=== PATIENT | male | born 1945 | race Caucasian/White ===

== ENCOUNTER → 2018-01-02 00:10 | Outpatient (CLI) | payer MEDICARE, SELFPAY ==
[2018-01-02 08:38] LABS: HCT 44.5 % (40.0-50.0); HGB 15.4 g/dL (13.5-17.5); Mean Corp. HGB Concentration 34.6 g/dL (32.0-36.0); Mean Corpuscular Hemoglobin 33.5 pg (27.0-33.0); Mean Corpuscular Volume 96.7 fL (80-95); Mean Platelet Volume 11.1 fL (8.0-11.0); Platelet Count 148 x1000/uL (130-400); RBC Distribution Width 12.2 % (11.8-14.1); White Blood Cell Count 5.88 k/cumm (4.4-10.8)
--- NOTE | 2018-01-02 09:00 | DI.RPTCT_ITS ---
SYMPTOM/DIAGNOSIS: WT LOSS, SMOKER, EARLY SATIETY CT CHEST/ABDOMEN/PELVIS: There is a 4 mm nodule in the posterior left lower lobe on Series 5 image 46. No additional pulmonary nodules are seen. There is no evidence of a suspicious mass, adenopathy, infiltrates or effusions. There are mild to moderate underlying emphysematous changes, both paracephali and central lobular. There is no significant bronchiectasis. Mild peripheral fibrosis is also seen. The heart size is normal. The aorta is normal in diameter. There is calcification and mild mural thrombus seen along the course of the aortic arch and descending thoracic aorta. Coronary artery calcifications are seen. The thyroid is unremarkable. IMPRESSION: Emphysematous and mild fibrotic changes. Single 4 mm nodule in the left lower lobe. An annual follow up with low dose screening chest CT could be considered in one year. CT ABDOMEN AND PELVIS: There is calcification and extensive irregular mural thrombus involving the abdominal aorta. The maximal dimension is 3.3 cm. The iliac arteries also show extensive calcification and thrombus but appear normal in diameter. The liver, spleen, gallbladder, pancreas and adrenals are unremarkable. There is a small stone near the upper pole of the right kidney and a small nonobstructing stone near the lower pole of the left kidney. There is an area of scarring laterally in the mid left kidney and an area of atrophy or scarring near the lower pole of the right kidney. There is no evidence of hydronephrosis. The prostate is normal in size. The bladder has a question of mild wall thickening. The appendix appears normal. There is a moderate quantity of stool. No colonic masses or inflammatory changes are seen. There is no small bowel dilatation. No adenopathy seen in the abdomen or pelvis. The bones appear osteoporotic. No suspicious lytic or blastic bony lesions seen. There are degenerative changes of the lumbar spine greatest at L5-S1. Extensive atherosclerotic changes of the abdominal aorta and iliac arteries without evidence of aneurysm or vascular occlusion. A small amount of obstructing bilateral renal calculi and bilateral areas of renal scarring are noted. No mass or adenopathy is identified.
[2018-01-02] MEDS: Omnipaque 350 MG/ML 100 ML BTL IJ (09:07)
[2018-01-02] MEDS: Breeza Beverage 473 ML BTL PO (09:10)
[2018-01-02] MEDS: Omnipaque 350 MG/ML 50 ML BTL IJ (09:10)
[2018-01-02 09:11] LABS: ALT 23 U/L (12-78); AST 13 U/L (15-37); Albumin 3.6 g/dL (3.4-5.0); Alkaline Phosphatase 87 U/L (46-116); BUN 18 mg/dL (7-18); Bilirubin, Total 1.1 mg/dL (0.2-1.0); CREATININE 1.05 mg/dL (0.70-1.30); Calcium 8.4 mg/dL (8.5-10.1); Chloride 100 mmol/L (98-107); Glucose 206 mg/dL (70-100); Potassium 4.1 mmol/L (3.5-5.1); Sodium 136 mmol/L (136-145); TSH 1.17 uIU/mL (0.358-3.74); Total Protein 6.9 g/dL (6.4-8.2)
[2018-01-03 07:51] LABS: Hemoglobin A1C 9.1 % (4.5-6.2)
== END ==
PROVIDERS: PCP General Practice; Visit Provider General Practice
DX: R63.4 Abnormal weight loss (principal); E11.9 Type 2 diabetes mellitus without complications; F17.200 Nicotine dependence, unspecified, uncomplicated; R91.1 Solitary pulmonary nodule; R68.81 Early satiety; M81.0 Age-related osteoporosis without current pathological fracture; N20.0 Calculus of kidney
CPT/HCPCS: 71260; 74177; Q9967; 36415; 80053; 85027; 83036; 84443; J3490

== ENCOUNTER 2018-08-08 07:02 | Outpatient (CLI) | payer MEDICARE, SELFPAY ==
[2018-08-08 07:50] LABS: Hemoglobin A1C 6.6 % (4.5-6.2)
== END 2018-08-08 07:22 ==
PROVIDERS: PCP General Practice; Visit Provider General Practice
DX: E11.9 Type 2 diabetes mellitus without complications (principal)
CPT/HCPCS: 36415; 83036

== ENCOUNTER 2018-09-19 15:51 | Outpatient (CLI) | payer MEDICARE, SELFPAY ==
--- NOTE | 2018-09-19 15:45 | DI.RAD_ITS ---
SYMPTOMS/DIAGNOSIS: TOE #5 PAIN, PURPLE X 3 MONTHS RIGHT FOOT: Three views were obtained. There are mild degenerative changes at the 1st MTP joint. No other significant bony abnormality seen.
[2018-09-19 16:11] LABS: HCT 41.2 % (40.0-50.0); HGB 13.9 g/dL (13.5-17.5); Mean Corp. HGB Concentration 33.7 g/dL (32.0-36.0); Mean Corpuscular Hemoglobin 32.5 pg (27.0-33.0); Mean Corpuscular Volume 96.3 fL (80-95); Mean Platelet Volume 11.3 fL (8.0-11.0); Platelet Count 152 x1000/uL (130-400); RBC 4.28 m/cumm (4.50-6.00); RBC Distribution Width 11.9 % (11.8-14.1); White Blood Cell Count 7.02 k/cumm (4.4-10.8)
[2018-09-19 17:54] LABS: C-Reactive Protein 0.14 mg/dL (0.0-0.3)
== END 2018-09-19 16:11 ==
PROVIDERS: PCP General Practice; Visit Provider General Practice
DX: M79.674 Pain in right toe(s) (principal); M19.071 Primary osteoarthritis, right ankle and foot
CPT/HCPCS: 36415; 85027; 73630; 86140

== ENCOUNTER 2018-12-29 07:00 | Outpatient (CLI) | payer MEDICARE, SELFPAY ==
[2018-12-29 08:15] LABS: CREATININE 1.03 mg/dL (0.70-1.30); Calculated LDL 112 mg/dL; Cholesterol 184 mg/dL (50-200); HDL Cholesterol 54 mg/dL (40-60); Triglyceride 92 mg/dL (30-150)
[2018-12-29 09:04] LABS: Hemoglobin A1C 6.5 % (4.5-6.2)
== END 2018-12-29 07:20 ==
PROVIDERS: PCP General Practice; Visit Provider General Practice
DX: I10 Essential (primary) hypertension (principal); E11.9 Type 2 diabetes mellitus without complications
CPT/HCPCS: 36415; 80061; 83721; 82565; 83036; 84132

== ENCOUNTER 2019-08-11 01:00 | Outpatient (CLI) | payer MEDICARE, SELFPAY ==
--- NOTE | 2019-08-11 13:15 | DI.CTLCSR_ITS ---
EXAM: CT CHEST LUNG CANCER SCREEN CLINICAL HISTORY: THE PATIENT REPORTEDLY HAS A HISTORY OF SMOKING 30 PACK YEARS AND PRESENTLY SMOKES OR HAS QUIT THE PAST 15 YEARS. TECHNIQUE: Imaging Protocol: Axial computed tomography images with coronal and sagittal reformatted images were created and reviewed COMPARISON: CHEST ABD PELVIS WITH CONTRAST from 01/02/2018 FINDINGS: Tracheobronchial tree: Patent where visualized. Mediastinum and Jennifer: No dominant adenopathy or fluid collection. Pulmonary parenchyma: No focal consolidating infiltrates are present. Mild to moderate emphysematous changes are present in the lungs. There is pulmonary fibrosis. Lung Nodules: There is a stable 4 mm nodule in the posterior aspect of the left lower lobe. No new p ulmonary nodules are present. Pleura: No effusion or pneumothorax. Heart: The heart is not dilated. Moderately severe coronary artery calcification is present. No jairo cardial effusion is present. Aorta: Thoracic aorta non-dilated.Atherosclerosis. Upper abdomen: Nonobstructing 3 mm stone in the upper pole of the right kidney. Bones: Degenerative changes. Soft Tissues: Unremarkable. IMPRESSION: 1. Stable 4 mm left lower lobe pulmonary nodule. 2. Pulmonary emphysema and pulmonary fibrosis. 3. Moderately severe coronary artery calcification. Lung RADS Cat 2 - Benign Appearance / Behavior: Nodules with a very low likelihood of becoming a clin ically active caner due to size or lack of growth Lung-RADS 1.0 CATEGORIES: Category 0 - Prior chest CT exam(s) being located for comparison. Category 1 - Annual screening in 12 months. No nodules or definitely benign nodules. Category 2 - Annual screening in 12 months. Benign appearance. Nodules with low likelihood of becomin g active cancer. Category 3 - 6-month follow-up. Probably benign. Short-term follow-up suggested. Nodules with low lik elihood of becoming active cancer. Category 4A - 3-month follow-up and CT/PET if >8 mm in size. Suspicious finding. Findings which requi re additional testing. Category 4B - Findings which require additional testing and tissue sampling. Suspicious finding. C Added to Any of the Above - History of prior lung cancer screening. S Added to Any of the Above - Significant unexpected other finding. RADIATION DOSE DELIVERED: DATA REPOSITORY: All CT scans at this facility are submitted to the National Radiology Data Registry (NRDR) Dose Index Registry (DIR) with the [employer] ([employer]). RADIATION OPTIMIZATION: All CT scans at this facility use at least one of these dose optimization te chniques: automated exposure control; mA and/or kV adjustment per patient size (includes targeted exa ms where dose is matched to clinical indication); or iterative reconstruction.
== END 2019-08-11 01:20 ==
PROVIDERS: PCP Family Medicine; Visit Provider Family Medicine
DX: Z12.2 Encounter for screening for malignant neoplasm of respiratory organs (principal); F17.210 Nicotine dependence, cigarettes, uncomplicated; R91.1 Solitary pulmonary nodule; J43.8 Other emphysema; I25.10 Atherosclerotic heart disease of native coronary artery without angina pectoris
CPT/HCPCS: G0297

== ENCOUNTER 2020-08-11 03:33 | Outpatient (CLI) | payer MEDICARE, SELFPAY ==
[2020-08-11 14:34] LABS: Anion Gap 9.8 mmol/L (3-11); BUN 40 mg/dL (7-18); CO2 24.2 mmol/L (21.0-32.0); CREATININE 1.7 mg/dL (0.70-1.30); Calcium 8.9 mg/dL (8.5-10.1); Chloride 103 mmol/L (98-107); Glucose 109 mg/dL (74-106); Potassium 5.2 mmol/L (3.5-5.1); Sodium 137 mmol/L (136-145)
== END 2020-08-11 03:34 | disposition home or self-care (01) ==
LOC: LBO 03:33
PROVIDERS: PCP Family Medicine; Visit Provider Family Medicine
DX: I10 Essential (primary) hypertension (principal)
CPT/HCPCS: 36415; 80048

== ENCOUNTER 2020-09-13 03:03 | Outpatient (CLI) | payer MEDICARE, SELFPAY ==
[2020-09-14 12:23] LABS: COVID-19 RT-PCR UVMMC Result Negative (Negative)
== END 2020-09-13 03:04 | disposition home or self-care (01) ==
LOC: LBO 03:03
PROVIDERS: PCP Family Medicine; Visit Provider Family Medicine
DX: Z20.822 Contact with and (suspected) exposure to COVID-19 (principal)
CPT/HCPCS: U0003; U0005

== ENCOUNTER 2020-09-20 02:45 | Outpatient (CLI) | payer MEDICARE, SELFPAY ==
[2020-09-20 13:05] LABS: Anion Gap 7.2 mmol/L (3-11); BUN 40 mg/dL (7-18); CO2 27.8 mmol/L (21.0-32.0); CREATININE 1.6 mg/dL (0.70-1.30); Calcium 8.9 mg/dL (8.5-10.1); Chloride 105 mmol/L (98-107); Estimated GFR 42.46 (mL/min/1.73m2); Glucose 86 mg/dL (74-106); Potassium 4.7 mmol/L (3.5-5.1); Sodium 140 mmol/L (136-145)
== END 2020-09-20 02:46 | disposition home or self-care (01) ==
LOC: LBO 02:45
PROVIDERS: PCP Family Medicine; Visit Provider Family Medicine
DX: I10 Essential (primary) hypertension (principal)
CPT/HCPCS: 36415; 80048

== ENCOUNTER 2020-10-21 04:12 | Outpatient (CLI) | payer MEDICARE, SELFPAY ==
--- NOTE | 2020-10-21 06:30 | DI.US_ITS ---
Exam(s) US RENAL EXAM: US RENAL CLINICAL HISTORY: New Onset CHRONIC KIDNEY DISEASE,N18.9 TECHNIQUE: Ultrasound performed using standard protocol. COMPARISON: No exams were available for comparison FINDINGS: Renal ultrasound was performed according to the usual protocol. The right kidney measures 7.8 x 4.3 x 3.5 cm and the left kidney measures 12.3 x 5.0 x 5.4 cm. There appears to be moderate right renal cortical thinning with the cortical width about 7 millimeters. T here is normal appearance of the left renal cortex. There is no hydronephrosis or nephrolithiasis on either side. No renal mass identified. Urinary bladder is grossly unremarkable with pre void volume about 120 cc. Patient was unable to voi d. Ureteral jets were seen bilaterally. Prostate volume estimated at 35 cc. IMPRESSION: There is mild to moderate right renal cortical thinning. No other significant findings. DATA REPOSITORY:
== END 2020-10-21 04:32 ==
PROVIDERS: PCP Family Medicine; Visit Provider Family Medicine
DX: N18.9 Chronic kidney disease, unspecified (principal); N28.89 Other specified disorders of kidney and ureter
CPT/HCPCS: 76770

== ENCOUNTER 2020-10-24 07:27 | Outpatient (REF) | payer MEDICARE, SELFPAY ==
[2020-10-24 10:22] LABS: PROTEIN 28.7 mg/dL (0.0-11.9)
[2020-10-24 10:23] LABS: TOTAL PROTEIN,URINE TIMED 401.8 mg/24hr (0.0-149.1); Total Volume 1400 ml
== END 2020-10-24 07:28 | disposition home or self-care (01) ==
LOC: LBN 07:27
PROVIDERS: PCP Family Medicine; Visit Provider Family Medicine
DX: N18.9 Chronic kidney disease, unspecified (principal)
CPT/HCPCS: 81050; 84155